=== PATIENT | female | born 1985 | race Caucasian/White ===

== ENCOUNTER 2021-07-27 17:06 | Emergency (ER) | payer BC ==
[2021-07-27] MEDS ORDERED: PREDNISONE 50 M50 MG PO (20:43)
[2021-07-27] MEDS ORDERED: BENADRYL25 MG PO (20:43)
[2021-07-27] MEDS ORDERED: EPIPEN 2-P0.3 MG/0.3 INJ (20:45)
== END 2021-07-27 21:30 | disposition home or self-care (01) ==
LOC: ER1 17:06
DX: T78.40XA Allergy, unspecified, initial encounter (principal); Z90.49 Acquired absence of other specified parts of digestive tract; X58.XXXA Exposure to other specified factors, initial encounter
CPT/HCPCS: 96372; 99282; J1200; J2930